=== PATIENT | female | born 1995 | race Caucasian/White ===

== ENCOUNTER 2019-03-19 20:44 | Emergency (ER) | payer BC, OTHER ==
[~2019-03-19] VITALS: Ht 170.2 cm; Wt 101.2 kg
[2019-03-19] MEDS ORDERED: NAPROSYN500 MG PO (21:45)
[2019-03-19] MEDS ORDERED: NORFLEX100 MG PO (21:45)
[2019-03-19 21:58] VITALS: BP 136/78
== END 2019-03-19 21:59 | disposition home or self-care (01) ==
LOC: ER 20:44
DX: S39.012A Strain of muscle, fascia and tendon of lower back, initial encounter (principal); S29.012A Strain of muscle and tendon of back wall of thorax, initial encounter; Z88.2 Allergy status to sulfonamides; V89.2XXA Person injured in unspecified motor-vehicle accident, traffic, initial encounter; Y92.89 Other specified places as the place of occurrence of the external cause; Y93.89 Activity, other specified; Y99.8 Other external cause status